=== PATIENT | male | born 1945 | race Caucasian/White ===

== ENCOUNTER 2018-02-13 10:55 | Day surgery (SDC) | payer MEDICARE ==
[~2018-02-13] VITALS: Ht 180.3 cm; Wt 105.9 kg
[~2018-02-13 10:55] MED LIST: ALPR.5CR PO; Apriso0.375 GM PO; Entocort EC 3 mg3 MG PO; MOMENI; Mesalamine4 GM/60 ML PR; PRED20 PO; Rowasa 4 G4 GM/60 ML; UCERIS9 MG PO
[2018-02-13] MEDS ORDERED: ALPR.5CR (11:26)
== END 2018-02-13 12:46 | disposition home or self-care (01) ==
LOC: ORSCSDS 10:55
PROVIDERS: Internal Medicine Gastroenterology
PROC: 0DBL8ZX Excision of Transverse Colon, Via Natural or Artificial Opening Endoscopic, Diagnostic (ICD-10-PCS; principal; 2018-02-13 12:15)
PROC: 0DBP8ZX Excision of Rectum, Via Natural or Artificial Opening Endoscopic, Diagnostic (ICD-10-PCS; principal; 2018-02-13 12:15)
PROC: 0DBE8ZX Excision of Large Intestine, Via Natural or Artificial Opening Endoscopic, Diagnostic (ICD-10-PCS; principal; 2018-02-13 12:15)
PROC: 0DBH8ZX Excision of Cecum, Via Natural or Artificial Opening Endoscopic, Diagnostic (ICD-10-PCS; principal; 2018-02-13 12:15)
PROC: 0DBN8ZX Excision of Sigmoid Colon, Via Natural or Artificial Opening Endoscopic, Diagnostic (ICD-10-PCS; principal; 2018-02-13 12:15)
DX: K51.90 Ulcerative colitis, unspecified, without complications (principal); D12.0 Benign neoplasm of cecum; D12.3 Benign neoplasm of transverse colon; J44.9 Chronic obstructive pulmonary disease, unspecified; G47.33 Obstructive sleep apnea (adult) (pediatric); Z79.899 Other long term (current) drug therapy
CPT/HCPCS: 88305; J2250; J7120

== ENCOUNTER → 2018-09-07 | Outpatient (CLI) | payer MEDICARE ==
[~2018-09-07] MED LIST changes: +ALPR.5CR
[2018-09-07 23:25] LABS: Adenovirus F 40/41 Not Detected (NOT DETECT); Astrovirus Not Detected (NOT DETECT); Campylobacter Sp Not Detected (NOT DETECT); Cryptosporidium Not Detected (NOT DETECT); Cyclospora Cayetanensis Not Detected (NOT DETECT); E. Coli O157 Not Detected (NOT DETECT); Entamoeba Histolytica Not Detected (NOT DETECT); Enteroaggregative E. coli-EAEC Not Detected (NOT DETECT); Enteropathogenic E. coli-EPEC Not Detected (NOT DETECT); Enterotoxigenic E. coli-ETEC Not Detected (NOT DETECT); Giardia Lamblia Not Detected (NOT DETECT); Norovirus GI/GII Not Detected (NOT DETECT); Plesiomonas Shigelloides Not Detected (NOT DETECT); Rotavirus A Not Detected (NOT DETECT); Salmonella Sp Not Detected (NOT DETECT); Sapovirus Not Detected (NOT DETECT); Shiga Toxin-prod E. coli-STEC Not Detected (NOT DETECT); Shigella/Enteroin E. coli-EIEC Not Detected (NOT DETECT); Vibrio Cholerae Not Detected (NOT DETECT); Vibrio Sp Not Detected (NOT DETECT); Yersinia Enterocolitica Not Detected (NOT DETECT)
== END | disposition home or self-care (01) ==
LOC: LAB SHORT 19:01 → LAB 19:01
PROVIDERS: Internal Medicine Gastroenterology
DX: R19.7 Diarrhea, unspecified (principal)
CPT/HCPCS: 87507

== ENCOUNTER 2019-05-03 14:47 | Day surgery (SDC) | payer MEDICARE | END 2019-05-03 23:58 | disposition home or self-care (01) | LOC: ATC 14:47 | DX: K51.90 Ulcerative colitis, unspecified, without complications (principal); J44.9 Chronic obstructive pulmonary disease, unspecified; G47.33 Obstructive sleep apnea (adult) (pediatric); Z87.891 Personal history of nicotine dependence; Z99.89 Dependence on other enabling machines and devices; Z79.899 Other long term (current) drug therapy ==

== ENCOUNTER 2024-01-26 06:45 | Day surgery (SDC) | payer MEDICARE ==
[2024-01-26] VITALS (14 sets, daily range): BP systolic 91–137; BP diastolic 61–86
[~2024-01-26] VITALS: Ht 177.8 cm; Wt 108.5 kg
[~2024-01-26 06:45] MED LIST changes: -ALPR.5CR; +Acetaminophen 500 MG Tab PO SCH; +Alprazolam ER0.5 MG PO; +CeFAZolin Sodium 2,000 MG in NS 100 ML IV SCH; +Chlorhexidine Mouth Care 15 ML UDC MT SCH; +HUMIRA40 MG/0.2 INJ; +Lactated Ringer's 1,000 ML IV SCH; +MESA250ER; +OxyCODONE HCL 10 MG TABCR PO SCH; +PROBIOTIC PO; +Ropivacaine 0.5% HCl/Pf 123.125 MG,EPINEPHrine HCL 0.25 MG,Ketorolac Tromethamine 15 MG... INFIL SCH; +Tranexamic Acid 100 ML IV SCH; +ZYRTEC10 M4 PO
[2024-01-26] MEDS ORDERED: Ondansetron HCl 2 MG / ML 2ML Vial IV PRN (07:45)
[2024-01-26] MEDS ORDERED: Magnesium Hydroxide Conc 10 ML UDC PO PRN (07:45)
[2024-01-26] MEDS ORDERED: Lactated Ringer's 1,000 ML IV SCH (07:45)
[2024-01-26] MEDS ORDERED: Metoclopramide HCl 5MG / ML 2ML Vial IV PRN (07:45)
[2024-01-26] MEDS ORDERED: OxyCODONE HCL 5 MG TAB PO PRN ×2 (07:50→07:55)
[2024-01-26] MEDS ORDERED: DiphenhydrAMINE HCL 25 MG Cap PO PRN (07:50)
[2024-01-26] MEDS ORDERED: HYDROmorphone HCl/Pf 1MG SYR IV PRN (07:50)
[2024-01-26] MEDS ORDERED: Bisacodyl 10 MG Supp PR PRN (07:55)
[2024-01-26] MEDS ORDERED: Promethazine HCl 25 MG Tab PO PRN (07:55)
[2024-01-26] MEDS ORDERED: Acetaminophen 500 MG Tab PO SCH (08:00)
[2024-01-26] MEDS ORDERED: FentaNYL Citrate 50 MCG/ML 2 ML Injection ONE (08:10)
[2024-01-26] MEDS ORDERED: Midazolam HCl 1MG / ML 2ML Vial ONE (08:18)
[2024-01-26] MEDS ORDERED: propofoL 60 ML IV ONE (08:24)
[2024-01-26] MEDS ORDERED: ePHEDrine Sulfate 50 MG/ML 1ML Injection ONE (08:35)
[2024-01-26] MEDS ORDERED: Lactobacil 2-S.Thermo-Bifido 1 1 Cap PO SCH (09:00)
[2024-01-26] MEDS ORDERED: Loratadine 10 MG Tab PO SCH (09:00)
[2024-01-26] MEDS ORDERED: Docusate Sodium 100 MG Cap PO SCH (09:00)
[2024-01-26] MEDS ORDERED: Phenylephrine HCl 100 MCG/ML-NS 10MLSYR (1MG/10ML) ONE (09:11)
[2024-01-26] MEDS ORDERED: Ondansetron HCl 2 MG / ML 2ML Vial ONE (09:11)
[2024-01-26] MEDS ORDERED: Dexamethasone Sod Phos 10 MG/ML 1ML VIAL ONE (09:11)
[2024-01-26] MEDS ORDERED: Glycopyrrolate 0.2 MG/ML 5ML VIAL ONE (09:12)
[2024-01-26] MEDS ORDERED: Bupivacaine 0.5% HCl 5 MG/ML 30MLVIAL ONE (09:27)
[2024-01-26] MEDS ORDERED: Esmolol HCL 10 MG/ML 10ML VIAL ONE (09:29)
[2024-01-26] MEDS ORDERED: Ketorolac Tromethamine 30mg Vial ONE (10:12)
--- NOTE | 2024-01-26 10:47 | NUR ---
ARRIVAL PT ARRIVED TO UNIT FROM PACU ON BED. S/P LTKA. DRESSING CDI, CATHY AND AQUACEL. POLAR EMIL IN PLACE. PT DENIES PAIN AT THIS TIME. REPORTS FULL SENSATION BUT DECREASED FROM THIGH TO TOES. SITTING UP IN BED TOLERATING PO AT THIS TIME. DENIES NAUSEA. IS PLANNING TO BEEF GRINDER PRESCRIPTIONS PRIOR TO DISCHARGE. ALREADY SENT TO Stop Being Watched PER HER REPORT. CALL LIGHT PROVIDED. PT REMAINS ON 3L NASAL CANULA. DESATS TO 90-91%. CPAP IN CAR. 95% WITH OXYGEN IN.
[2024-01-26] MEDS ORDERED: Ketorolac Tromethamine 15mg Vial IV SCH (12:00)
[2024-01-26] MEDS ORDERED: CeFAZolin Sodium 2,000 MG in NS 100 ML IV SCH (16:00)
[2024-01-26] MEDS ORDERED: ALPR1 PO (17:24)
--- NOTE | 2024-01-26 19:18 | NUR ---
SHIFT SUMMARY POD0 L TKA, A/OX4, VSS, TOLERATING PO, VOIDING BUT IN SMALL AMOUNTS, THERAPY TODAY, PLAN FOR THERAPY IN THE AM, HOME CPAP IN ROOM, DENIES PAIN, AQUACELL C/D/I. NO ACUTE EVENTS, CALL LIGHT IN REACH.
[2024-01-26] MEDS ORDERED: Misc. Tablet PO SCH (21:00)
[2024-01-26] MEDS ORDERED: ALPRAZolam 0.5 MG Tab PO SCH (21:00)
[2024-01-26] MEDS ORDERED: CeFAZolin Sodium 2,000 MG VIAL ONE (23:46)
[2024-01-26] MEDS ORDERED: Acetaminophen 500 MG Tab ONE (23:46)
[2024-01-26] MEDS ORDERED: Ketorolac Tromethamine 15mg Vial ONE (23:46)
[2024-01-27] MEDS ORDERED: Calcium Carbonate 500 MG Tab Chew PO PRN (01:25)
[2024-01-27] MEDS ORDERED: Apixaban 5 MG Tab PO SCH (09:00)
== END 2024-01-26 22:48 | disposition home or self-care (01) ==
LOC: ORSCMMR 06:45 → ORD 08:00 → SURS 10:01 → ORD 10:30 → ORSCMMR 22:48
PROVIDERS: Orthopaedic Surgery
PROC: 0SRD0JA Replacement of Left Knee Joint with Synthetic Substitute, Uncemented, Open Approach (ICD-10-PCS; principal; 2024-01-26 08:00)
DX: M17.12 Unilateral primary osteoarthritis, left knee (principal); G47.33 Obstructive sleep apnea (adult) (pediatric); Z87.891 Personal history of nicotine dependence; Z85.528 Personal history of other malignant neoplasm of kidney; Z68.34 Body mass index [BMI] 34.0-34.9, adult; J44.9 Chronic obstructive pulmonary disease, unspecified; F17.210 Nicotine dependence, cigarettes, uncomplicated; N18.9 Chronic kidney disease, unspecified; Z79.899 Other long term (current) drug therapy
CPT/HCPCS: 73560-LT; 97110; 97116; 97162; A9270; C1776; J0171; J0690; J0735; J1100; J1885; J2250; J2371; J2405; J2704; J2795; J3010; J7120